=== PATIENT | male | born 1985 | race Caucasian/White ===

== ENCOUNTER 2024-07-18 21:00 | Emergency (ER) | payer SELFPAY ==
[2024-07-18 21:00] VITALS: BMI 30.1
[2024-07-18 21:06] VITALS: BP 145/96
[2024-07-18] MEDS: TORADOL 30 MG IV (21:10)
[2024-07-18 21:18] LABS: % Basophils 0.3 % (0-2); % Eosinophils 2.2 % (0-6); % Immature Granulocytes 0.5 % (0-0.5); % Lymphocytes 11.4 % (20.5-51.1); % Monocytes 5.2 % (1.7-9.3); % Neutrophils 80.4 % (42.2-75.2); Absolute Basophils 0.1 10^3/uL (0-0.2); Absolute Eosinophils 0.4 10^3/uL (0-0.7); Absolute Immature Granulocytes 0.1 10^3/uL (0-0.05); Absolute Lymphocytes 2.2 10^3/uL (1.2-3.4); Absolute Neutrophils 15.3 10^3/uL (1.4-6.5); Hematocrit 42.5 % (39.0-52.0); Hemoglobin 14.7 g/dL (13.0-18.0); Mean Corp Hgb Conc. 34.6 g/dL (33.0-37.0); Mean Corpuscular Hgb 30.9 pg (27.0-31.0); Mean Corpuscular Volume 89.5 fL (80.0-94.0); Mean Platelet Volume 9.1 fL (7.4-10.4); Nucleated Red Blood Cells % 0 % (-); Platelet Count 299 10^3/uL (130-400); Red Blood Cell Count 4.75 10^6/uL (4.70-6.10); Red Cell Dist. Width 12.7 % (11.5-14.5)
[2024-07-18 21:45] LABS: Blood Urea Nitrogen 15 mg/dl (9-20); Calcium 9.8 mg/dl (8.4-10.2); Carbon Dioxide 22 mmol/L (22-30); Chloride 108 mmol/L (98-107); Glucose 110 mg/dl (70-99); Sodium 140 mmol/L (135-145); eGFR > 60.00
[2024-07-18 23:05] VITALS: BP 122/110
--- NOTE | 2024-07-18 23:27 | ED.GENMED ---
History of Present Illness
General
Chief Complaint: Back Pain
Source: patient
Exam Limitations: none
Time Seen by Provider: 07/18/24 23:03
History of Present Illness
History of Present Illness:
39-year-old male presents complaining of onset of left flank pain that radiates to the lower abdomen today. The pain was severe sharp in nature. He states he could not find a comfortable position. There is no vomiting. No fever. No prior
history of kidney stones. No urinary symptoms. No other complaints at this time
Phy Exam
Physical Exam
Physical Exam:
General: Well-appearing male no acute respiratory distress
HEENT: Normocephalic atraumatic
Heart: Regular rate and rhythm no murmurs
Lungs: Clear no wheeze
Abdomen is soft nontender nondistended no guarding rebound normal bowel sounds, no CVA tenderness
Ext: No cyanosis or edema
Skin: Warm, no rash
Course
Orders/Labs/Results
Orders:
Orders
07/18/24 21:04
CT Abd/pelvis Wo Iv Cont Urgent
Comment:
Reason For Exam: flank pain
07/18/24 21:05
Urinalysis Reflex To Culture Urgent
Date Specimen was Collected: 07/18/24
Time Specimen was Collected: 21:05
07/18/24 21:08
Ketorolac [Toradol] 30 mg .ROUTE .STK-MED ONE
07/18/24 21:09
Basic Metabolic Panel Urgent
CBC/With Diff [Complete Blood Count/With Diff] Urgent
Ketorolac [Toradol] 30 mg IV NOW STA
07/18/24 23:21
0.9% Sodium Chloride 1000 ml [Nss] 1,000 ml IV BOLUS
07/19/24 00:00
HYDROmorphone [Dilaudid] 0.5 mg IV NOW STA
Abnormal Lab Results
07/18/24
21:09
WBC 19.0 H 10^3/uL
(4.8-10.8)
Abs Immat Gran (auto) 0.1 H 10^3/uL
(0-0.05)
Absolute Neuts (auto) 15.3 H 10^3/uL
(1.4-6.5)
Absolute Monos (auto) 1.0 H 10^3/uL
(0.1-0.6)
Neutrophils % 80.4 H %
(42.2-75.2)
Lymphocytes % 11.4 L %
(20.5-51.1)
Chloride 108 H mmol/L
(98-107)
Glucose 110 H mg/dl
(70-99)
07/18/24 21:09
07/18/24 21:09
Vital Signs
Initial and Last Documented VS:
Initial Vital Signs
Temp Pulse Resp Pulse Ox
97.9 F 70 15 97
07/18/24 21:01 07/18/24 21:01 07/18/24 21:01 07/18/24 21:01
Last Documented Vital Signs
Temp Pulse Resp BP Pulse Ox
97.9 F 70 15 129/93 97
07/18/24 21:01 07/18/24 21:01 07/18/24 21:01 07/19/24 00:00 07/18/24 21:01
MDM/Problems Addressed
Differential Diagnosis Includes:
Patient with left flank pain. Consider renal colic versus musculoskeletal flank pain versus diverticulitis
CT of the abdomen was reviewed and demonstrates a 4 mm stone in the distal left ureter at the UVJ causing mild hydronephrosis. Patient received Toradol at triage and is feeling much better. Fluids ordered waiting on urine.
*Critical Care Note
Total Time (30-74mins, 75-104mins- exclusive of procedures): Not Applicable
ED Attending Note
-
Portions of this chart may have been created with voice recognition software.� Occasional wrong word or��sound alike� substitutions may have occurred due to the inherent limitations of voice recognition software.
Discharge Plan
Departure
Patient Disposition: Home (Routine Discharge)
Date of Disposition: 07/19/24
Time of Disposition: 00:35
Patient with high blood pressure during this ER visit?: No
Discharge Problem:
Kidney stone
Instructions: Kidney stones in adults - ED discharge instructions
Prescriptions:
New
tamsulosin [Flomax] 0.4 mg capsule
0.4 mg PO DAILY Qty: 14 0RF
ibuprofen 600 mg tablet
600 mg PO Q6H PRN (Reason: Pain) Qty: 14 0RF
Referrals:
Costa Villanueva MD [Active] -
NONE,* [Family Provider] -
Activity Restrictions/Additional Instructions:
Drink plenty of fluids. Use Motrin for pain. Use Flomax as directed. Strain the urine. Return for fevers vomiting increasing pain or other concerning finding
Interventions
Interventions:
*Risk Screen - Suicide Last Done: 07/18/24 21:01
*General Assessment Last Done: 07/18/24 21:01
*Neglect/Abuse Screening Last Done: 07/18/24 21:01
*ED COVID-19 Vaccine History Last Done: 07/18/24 21:01
ED-Musculoskeletal Assessment Last Done: 07/18/24 23:06
Discharge Date and Time
Print Language: ALBANIAN
[2024-07-18] MEDS: NSS 1000 IV (23:29)
[2024-07-19] VITALS: BP 129/93
[2024-07-19] MEDS: DILAUDID 0.5 MG IV (00:12)
[2024-07-19 00:23] LABS: Urine Albumin Negative (Neg - Trace); Urine Bilirubin Negative (Negative); Urine Character Clear (Clear); Urine Color Yellow; Urine Glucose Negative (Negative); Urine Ketone Negative (Negative); Urine Leukocyte Negative (Negative); Urine Nitrite Negative (Negative); Urine Occult Blood Negative (Negative); Urine Urobilinogen Negative (Neg - 1+)
== END 2024-07-19 00:56 | disposition home or self-care (01) ==
LOC: EMR 21:00
PROVIDERS: EMERGENCY PHYSICIAN Emergency Medicine
DX: N13.2 Hydronephrosis with renal and ureteral calculous obstruction (principal)
CPT/HCPCS: 96374; 96375; 96361; 99284; 74176; 80048; 81003; 85025

== ENCOUNTER 2025-01-19 02:46 | Day surgery (SDC) | payer SELFPAY ==
[2025-01-19 00:58] VITALS: BP 144/111
[2025-01-19] MEDS: PROTONIX IV 40 MG IV (01:20)
[2025-01-19] MEDS: NSS 1000 IV (01:21)
[2025-01-19 01:27] VITALS: BMI 28.1
[2025-01-19 01:37] LABS: Hematocrit 42.2 % (39.0-52.0); Hemoglobin 14.0 g/dL (13.0-18.0); Mean Corp Hgb Conc. 33.2 g/dL (33.0-37.0); Mean Corpuscular Volume 91.7 fL (80.0-94.0); Nucleated Red Blood Cells % 0 % (-); Platelet Count 275 10^3/uL (130-400); Red Cell Dist. Width 13.2 % (11.5-14.5)
[2025-01-19 01:59] LABS: ALT (SGPT) 29 U/L (0-50); AST (SGOT) 26 U/L (17-59); Albumin 4.7 g/dl (3.5-5.0); Alkaline Phosphatase 86 U/L (38-126); Blood Urea Nitrogen 20 mg/dl (9-20); Calcium 9.1 mg/dl (8.4-10.2); Carbon Dioxide 20 mmol/L (22-30); Chloride 112 mmol/L (98-107); Estimated Creatinine Clearance 119 ml/min; Glucose 99 mg/dl (70-99); Potassium 4.1 mmol/L (3.5-5.1); Sodium 142 mmol/L (135-145); Total Protein 7.3 g/dl (6.3-8.2); eGFR > 60.00
--- NOTE | 2025-01-19 03:34 | CON.GI ---
Consultation
-
Date/Time Consultation Requested: 01/19/25 2:37a
Date/Time Consultation Performed: 01/19/25 3:34a
Requesting Provider: Ibis Mcintosh
Performing Provider: Yosi Baires
Reason for Consultation: Food impaction
Medical History
Chief Complaint / HPI
Chief Complaint: Food impaction
History of Present Illness:
39yo male presents with food impaction after eating 2 bites of steak this evening around 8 PM. He occasionally has had food gets stuck but usually passes after manipulation. He has never had to come to the ER before. It happens every couple of
months. He also has reflux symptoms and heartburn.
Past Medical History
Past Medical History: None
Past Surgical History: None
Social History
Tobacco: Smoker
Alcohol: Occasional
Family History
Family History: Reviewed & Not Pertinent
Allergies / Home Medications
Allergy/AdvReac Type Severity Reaction Status Date / Time
No Known Allergies Allergy Verified 01/19/25 00:58
�Medication �Instructions �Recorded
No Meds [No Current Medications] 01/19/25
Review of Systems
-
All other systems: A 12 pt ROS was Negative except as stated above in HPI
Vital Signs
Pulse Resp BP Pulse Ox
92 24 144/111 99
01/19/25 02:47 01/19/25 02:47 01/19/25 00:58 01/19/25 02:47
Physical Exam
Exam
General: Well Developed, Well Nourished and Other (spitting into emesis bag)
Respiratory: Non Labored Respirations
GI: Soft, Non Tender and Non Distended
Skin: Warm and Dry
Results
WBC 16.7 10^3/uL (4.8-10.8) H 01/19/25 01:25
Hgb 14.0 g/dL (13.0-18.0) 01/19/25 01:25
Hct 42.2 % (39.0-52.0) 01/19/25 01:25
MCV 91.7 fL (80.0-94.0) 01/19/25 01:25
Plt Count 275 10^3/uL (130-400) 01/19/25 01:25
Absolute Neuts (auto) 12.0 10^3/uL (1.4-6.5) H 01/19/25:25
Sodium 142 mmol/L (135-145) 01/19/25:25
Potassium 4.1 mmol/L (3.5-5.1) 01/19/25:25
Chloride 112 mmol/L (98-107) H 01/19/25:25
Carbon Dioxide 20 mmol/L (22-30) L 01/19/25:25
BUN 20 mg/dl (9-20) 01/19/25:25
Creatinine 0.8 mg/dL (0.7-1.3) 01/19/25 01:25
Calcium 9.1 mg/dl (8.4-10.2) 01/19/25:25
Total Bilirubin 0.5 mg/dl (0.2-1.3) 01/19/25 01:25
AST 26 U/L (17-59) 01/19/25 01:25
ALT 29 U/L (0-50) 01/19/25 01:25
Alkaline Phosphatase 86 U/L (38-126) 01/19/25 01:25
Diagnostic Image Results:
Prior GI Procedures:
EGD:
Colonoscopy:
Assessment / Plan
-
Impression:
Food impaction
Recommendations:
EGD to remove food impaction now
-
-
Thank you for consultation and allowing me to participate in the patient's care. Please call the [facility] physician during the after hours with any questions or concerns.
--- NOTE | 2025-01-19 04:17 | ED.GENMED ---
History of Present Illness
General
Chief Complaint: Esophageal Problem
Source: patient
Exam Limitations: none
Time Seen by Provider: 01/19/25 02:26
Nursing documentation reviewed up to this point in time: agreed with
History of Present Illness
History of Present Illness:
The patient is a 39-year-old male presenting with dysphagia, reporting a sensation of food obstruction when eating, specifically after consuming steak earlier today. He describes the feeling as if a piece did not go down all the way, an event which
has occurred occasionally, typically 2-3 times per year. The patient mentions that normally, the obstruction sensation resolves on its own as the food progresses down the esophagus. Despite experiencing a similar incident today, the sensation
persists. The patient explains that he can swallow saliva without difficulty but then immediately regurgitates.
He denies shortness of breath. No cough. No sore throat.
He was concern for possible allergic reaction.
The patient has no known medication allergies, and reports no major health problems.
Past History
Past History
ED Past Medical History: Other (Kidney stones)
ED Past Surgical History: None
Social History
Tobacco: Non-smoker
Alcohol: Occasional
Drug: None
Personal: Single
Living: with family
Employment: Employed
Family History
Family History: Other (Noncontributory)
Phy Exam
Physical Exam
Physical Exam:
GENERAL: 39-year-old gentleman appears his stated age, awake and alert, pleasant, appears mildly uncomfortable. Frequently regurgitating saliva into an emesis bag. No respiratory distress. Able to speak in full sentences. No stridor nor cough.
EYE: pupils equal and reactive. anicteric
NECK: Supple, nontender, no meningismus, no significant adenopathy.
ENT: posterior pharynx is clear, oral mucosa is moist. TM clear b/l, nares patent.
CARDIAC: Regular rate and rhythm. no murmur.
LUNGS: Clear breath sounds bilaterally, no acute respiratory distress, no wheezes/rales/rhonchi
ABDOMEN: Soft, nondistended, without focal tenderness, normoactive BS.
NEUROLOGICAL: Alert and oriented x3, no focal neuro deficits.
SKIN: Warm and dry, normal color, skin intact. No rash.
MUSCULOSKELETAL: No C/C/E. peripheral pulses are full and equal b/l. No palpable tenderness.
PSYCH: Normal and appropriate interaction.
Course
Orders/Labs/Results
Orders:
Orders
01/19/25 01:15
Glucagon [GlucaGen] 1 mg .ROUTE .STK-MED ONE
Pantoprazole [Protonix IV] 40 mg .ROUTE .STK-MED ONE
01/19/25 01:19
0.9% Sodium Chloride 1000 ml [Nss] 1,000 ml IV BOLUS
Glucagon [GlucaGen] 1 mg IV NOW STA
01/19/25 01:20
Pantoprazole [Protonix IV] 40 mg IV NOW STA
01/19/25 01:25
Complete Blood Count/With Diff Urgent
Comprehensive Metabolic Panel Urgent
01/19/25 02:20
Glucagon [GlucaGen] 1 mg .ROUTE .STK-MED ONE
01/19/25 02:21
Glucagon [GlucaGen] 1 mg IV NOW STA
01/19/25 02:33
CR Chest - 2 Views Urgent
Comment:
Reason For Exam: esophageal food impaction, recurrent vomiting
01/19/25 03:55
Propofol [Diprivan] 20 ml .ROUTE .STK-MED
Succinylcholine Chloride [Succinylcholine] 200 mg .ROUTE .STK-MED ONE
01/19/25 03:56
Rocuronium Franklin [Rocuronium] 50 mg .ROUTE .STK-MED ONE
01/19/25 04:04
Dexamethasone Sod Phosphate [Decadron] 20 mg .ROUTE .STK-MED ONE
Ondansetron Injectable [Zofran] 4 mg .ROUTE .STK-MED ONE
Sugammadex Sodium [Bridion] 200 mg .ROUTE .STK-MED ONE
01/19/25 04:20
Propofol [Diprivan] 20 ml .ROUTE .STK-MED
Rocuronium Franklin [Rocuronium] 50 mg .ROUTE .STK-MED ONE
01/19/25 04:21
Succinylcholine Chloride [Succinylcholine] 200 mg .ROUTE .STK-MED ONE
01/19/25 04:22
Lidocaine HCl/Pf [Xylocaine-Mpf 1% Vial] 50 mg .ROUTE .STK-MED ONE
01/19/25 04:23
Fentanyl Citrate/Pf [Sublimaze] 100 mcg .ROUTE .STK-MED ONE
01/19/25 05:38
Fentanyl Citrate/Pf [Sublimaze] 25 mcg IV [id number] PRN
HYDROmorphone [Dilaudid] 0.25 mg IV PACU-Q5MPRN PRN
HYDROmorphone [Dilaudid] 0.5 mg IV PACU-Q5MPRN PRN
Ondansetron Injectable [Zofran] 4 mg IV PACU-ONCEPRN PRN
Prochlorperazine [Compazine] 5 mg IV PACU-ONCEPRN PRN
Notify MD As Directed
Notify physician if: for SDS patients with known or suspected sleep obstructive sleep apnea, monitor in the
PACU.
Notify MD for any apneic/desaturation episodes
O2 Therapy [RESP] Urgent
Titrate/Wean O2 to maintain O2 sat greater than (%): 92
Special Instructions: -Provide supplemental oxygen to achieve O2 sat of 92% or greater.
-After 15 min, may wean O2 and discontinue if patient is able to maintain O2 sat of 92%
or greater during recovery period.
If patient is a discharge home, without oxygen therapy, notify anestheiologist if
unable to maintain O2 SAT of 92% or greater on room air for MD clearance.
01/19/25 05:45
Normosol (Mult Electrolytes) [Normosol-R/Plasmalyte-A] 1,000 ml IV PER PROTOCOL
Abnormal Lab Results
01/19/25
01:25
WBC 16.7 H 10^3/uL
(4.8-10.8)
RBC 4.60 L 10^6/uL
(4.70-6.10)
Abs Immat Gran (auto) 0.1 H 10^3/uL
(0-0.05)
Absolute Neuts (auto) 12.0 H 10^3/uL
(1.4-6.5)
Absolute Monos (auto) 1.2 H 10^3/uL
(0.1-0.6)
Lymphocytes % 17.8 L %
(20.5-51.1)
Chloride 112 H mmol/L
(98-107)
Carbon Dioxide 20 L mmol/L
(22-30)
01/19/25 01:25
01/19/25 01:25
Vital Signs
Initial and Last Documented VS:
Initial Vital Signs
Pulse Resp BP Pulse Ox
85 18 144/111 98
01/19/25 00:58 01/19/25 00:58 01/19/25 00:58 01/19/25 00:58
Last Documented Vital Signs
Temp Pulse Resp BP Pulse Ox
99.4 F 87 20 128/91 100
01/19/25 04:50 01/19/25 05:07 01/19/25 05:07 01/19/25 05:07 01/19/25 05:07
MDM/Problems Addressed
Differential Diagnosis Includes:
The Differential Diagnosis includes, in no particular order and is not limited to:
1. Esophageal stricture
2. Esophageal spasm
3. Achalasia
4. Schatzki ring
5. Gastroesophageal reflux disease (GERD)
6. Eosinophilic esophagitis
7. Esophageal web
8. Foreign body obstruction
9. Hiatal hernia
10. Esophageal cancer
MDM/Problems Addressed:
Dysphagia with recurrent vomiting of saliva
Significant concern for esophageal food impaction.
Thus far no improvement/resolution despite 2 doses of IV glucagon and an IV dose of Protonix.
Will plan to consult GI for urgent endoscopy.
Patient remains hemodynamically stable, no respiratory compromise.
Will check chest x-ray and routine labs are pending. Will continue IV fluids.
Chronic conditions affecting care: Other (Similar episodes of esophageal food obstruction generally 2-3 times per year, resolved spontaneously until tonight.)
*Radiology
Radiology exam reviewed: preliminary read by ED provider (Chest x-ray is unremarkable. Clear lung felton. Normal heart size.)
*Pulse Oximetry
SaO2: 95
Oxygen Mode of Delivery: Room air
Patient hypoxic: no
*Salad Chef Interpretation
Rate: normal
Interpretation: normal
Rhythm: sinus
*Critical Care Note
Total Time (30-74mins, 75-104mins- exclusive of procedures): Not Applicable
Update Note
Update Note:
02:45
No relief of frequent regurgitation of saliva despite 2 doses of IV glucagon.
Case discussed with GI. Dr. Baires. Will be in to evaluate and plan for GI lab.
ED Attending Note
-
Portions of this chart may have been created with voice recognition software.� Occasional wrong word or��sound alike� substitutions may have occurred due to the inherent limitations of voice recognition software.
Discharge Plan
Departure
Patient Disposition: GI LAB
Date of Disposition: 01/19/25
Time of Disposition: 02:45
Admit to: GI lab
Admit to doctor: billy
Presentation/result/management discussed w/ accepting MD/DO: GI
Discharge Problem:
Food impaction of esophagus
Prescriptions:
No Action
No Current Medications
0
Referrals:
UNKNOWN,NO INTERVIEW [Family Provider]
Interventions
Interventions:
*Risk Screen - Suicide Last Done: 01/19/25 00:58
*General Assessment Last Done: 01/19/25 00:58
*Neglect/Abuse Screening Last Done: 01/19/25 00:58
*ED- Fall Risk Assessment Last Done: 01/19/25 04:12
*ED COVID-19 Vaccine History Last Done: 01/19/25 01:02
*ED Influenza Vaccine History Last Done: 01/19/25 01:02
*Nursing Disposition Last Done: 01/19/25 04:12
VN-Edrysh-Fuiopxlxbw Assessment Last Done: 01/19/25 01:29
ED-EENT Assessment Last Done: 01/19/25 01:33
Discharge Date and Time
Discharge Date/Time: 01/19/25 04:12
Print Language: VIET[place]ESE
[2025-01-19 04:50] VITALS: BP 122/63; BP 144/111
[2025-01-19 05:05] VITALS: BP 115/62
[2025-01-19 05:07] VITALS: BP 128/91
== END 2025-01-19 04:12 | disposition home or self-care (01) ==
LOC: GI-IN 02:46
PROVIDERS: ATTENDING PHYSICIAN Specialist; EMERGENCY PHYSICIAN Emergency Medicine
DX: T18.128A Food in esophagus causing other injury, initial encounter (principal); T18.108A Unspecified foreign body in esophagus causing other injury, initial encounter; W44.F3XA Food entering into or through a natural orifice, initial encounter; K22.89 Other specified disease of esophagus; K22.11 Ulcer of esophagus with bleeding; K22.2 Esophageal obstruction
CPT/HCPCS: 43247; 43239; 71046; 80053; 85025; 88305; 96361; 96374; 96375; 96376; 99285; J1610